=== PATIENT | male | born 1980 | race Caucasian/White ===

== ENCOUNTER 2016-10-23 13:41 | Emergency (ER) | payer OTHER ==
[~2016-10-23] VITALS: Ht 190.5 cm; Wt 116.3 kg
[2016-10-23 13:45] VITALS: TEMP 36.7; Ht 190.5 cm; Wt 116.3 kg
[2016-10-23] MEDS ORDERED: OXYCODONE HCL IR 5 MG TAB (IMMEDIATE RELEASE) PO STA (14:01)
[2016-10-23] MEDS ORDERED: IBUPROFEN 600 MG TAB PO STA (14:01)
[2016-10-23] MEDS ORDERED: NAPR-1169 PO (14:16)
[2016-10-23] MEDS ORDERED: BUPR-79 PO (14:16)
[2016-10-23] MEDS ORDERED: DIVA500T5 PO (14:16)
[2016-10-23] MEDS ORDERED: HYDROCODONE/ACETAMOPHEN 5/325MG TAB PO STA (14:29)
--- NOTE | 2016-10-23 14:50 | DIAGNOSTIC IMAGING REPORT ---
LEFT SHOULDER MIN 2 VIEWS ROUTINE CLINICAL HISTORY: 36 years-old Male presenting with L shoudler pain while weight lifting. TECHNIQUE: Internal rotation, external rotation, and Grashey views of the left shoulder were obtained. COMPARISON: None. FINDINGS: Glenohumeral and acromioclavicular joints congruent. No subluxation. No acute fracture. No significant degenerative change. Visualized portions of the left hemithorax normal. IMPRESSION: No acute osseous injury of the left shoulder. Electronically signed by: Radhames Leyva M.D. 10/23/2016 2:49 PM Dictated Date/Time: 10/23/2016 2:47 PM
[2016-10-23] MEDS ORDERED: HYDR-5688 PO (15:09)
[2016-10-23 15:16] VITALS: BP 143/93; PULSE 70; O2SAT 97
--- NOTE | 2016-10-23 20:06 | EMERGENCY ROOM VISIT NOTE ---
History First contact with patient: 13:50 Chief Complaint: SHOULDER PAIN Stated Complaint: LEFT SHOULDER PAIN History of Present Illness The patient is a 36 year old male who presents to the Emergency Room with complaints of left shoulder pain well performing incline dumbbell presses. The patient reports sudden onset of pain, and had to drop the dumbbell. Now reports significant stiffness and discomfort of the shoulder. He denies any pain extending into the neck, and also denies any paresthesias or numbness of the left upper extremity. The patient does report a prior history of SLAP tear seen on arthrogram, and performed by [facility] earlier last year. The patient is [id number], and rates his discomfort a 6 out of 10. Review of Systems 10 system review was performed and was negative except for pertinent positives and negatives as indicated in history of present illness Past Medical/Surgical History Medical Problems: (1) No significant past medical history Surgical Problems: (1) No history of previous surgery Family History Unremarkable Social History Smoking Status: Current Some Day Smoker Alcohol Use: occasionally Drug Use: none Marital Status: Occupation Status: employed Current/Historical Medications Scheduled Bupropion (Wellbutrin Sr), 150 MG PO BID Divalproex Sodium (Depakote Delay Rel), 500 MG PO BID Naproxen (Naprosyn), 500 MG PO DAILY Scheduled PRN Hydrocodone/Acetaminophen 5MG/325MG ([place] 5MG/325MG), 1-2 TABLET PO Q4H PRN for Pain Allergies Coded Allergies: No Known Allergies (Unverified , 10/23/16) Physical Exam Vital Signs Date Time Temp Pulse Resp B/P (MAP) Pulse Ox O2 Delivery O2 Flow Rate FiO2 10/23/16 15:16 70 16 143/93 97 10/23/16 13:45 36.7 80 16 147/91 99 Room Air Physical Exam CONSTITUTIONAL: Well-developed male, alert and oriented X 3 with positive affect. Patient appears in mild discomfort from pain. HEENT: Normocephalic, atraumatic. Pupils equal, round and reactive. NECK: Full active range of motion without discomfort. No tenderness to palpation through the central cervical spine or paraspinous muscles. RESPIRATORY: Clear to auscultation bilaterally with no wheezing, crackles, rhonchi or stridor. CARDIOVASCULAR: Regular rate and rhythm with no murmurs, rubs or gallops. MUSCULOSKELETAL: Examination shows no obvious soft tissue edema or ecchymosis about the shoulder. He has minimal discomfort to the distal clavicle and acromion clavicular joint. He has tenderness to the bicipital groove and posterior shoulder region. Gentle internal and external rotation does not worsen his discomfort. Any additional range of motion of the shoulder causes discomfort. Distal pulses are intact. INTEGUMENTARY: No rash or other significant dermatologic conditions noted. NEUROLOGIC: Left deltoid sensation is intact. Medical Decision & Procedures ER Provider Diagnostic Interpretation: My interpretation of left shoulder x-rays does not show any obvious fractures, separation or dislocation. Radiologist report is as follows: LEFT SHOULDER MIN 2 VIEWS ROUTINE CLINICAL HISTORY: 36 years-old Male presenting with L shoudler pain while weight lifting. TECHNIQUE: Internal rotation, external rotation, and Grashey views of the left shoulder were obtained. COMPARISON: None. FINDINGS: Glenohumeral and acromioclavicular joints congruent. No subluxation. No acute fracture. No significant degenerative change. Visualized portions of the left hemithorax normal. IMPRESSION: No acute osseous injury of the left shoulder. Medications Administered Medications (Trade) Dose Ordered Sig/Sherice Route Start Time Stop Time Status Last Admin Dose Admin Ibuprofen (Motrin Tab) 600 mg NOW STAT PO 10/23/16 14:01 10/23/16 14:03 DC 10/23/16 14:21 600 MG Acetaminophen/ Hydrocodone Bitart ([place] 5/325 Tab) 1 tab ONE STAT PO 10/23/16 14:29 10/23/16 14:31 DC 10/23/16 14:54 1 TAB ED Course Patient history and physical exam were performed. Nurse's notes were reviewed. The patient was administered ibuprofen 600 mg and [place] 5/325 for pain. X- rays of the left shoulder were normal. The patient was instructed to perform gentle range of motion exercises to prevent stiffness. He was instructed to follow-up with [facility] for further reevaluation and management. Ice for swelling. Ibuprofen and Tylenol as needed for baseline pain relief. The patient was provided a prescription for [place] as needed for worse pain. No drinking alcohol or driving while taking [place]. 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 The patient was happy with plan of care, voiced understanding of all discharge instructions, and rated his pain a 4 out of 10 at the time of discharge. Medical Decision X-rays today are not suggestive of fracture, dislocation or acromioclavicular separation. Acute tendinitis, rotator cuff injury and bursitis were also considered. [facility] Monitoring Program Search Results: patient reviewed within database, no issues identified Impression Primary Impression: Injury of left shoulder Departure Information Prescriptions Hydrocodone/Acetaminophen 5MG/325MG ([place] 5MG/325MG) Tab 1-2 TABLET PO Q4H Y for Pain, #15 TAB For Initial Treatment Prov: Dl Hamm PA 10/23/16 Referrals Andrew Escudero M.D. (PCP) Patient Instructions My [facility] Problem Qualifiers Primary Impression: Injury of left shoulder Encounter type: initial encounter Qualified Codes: S49.92XA - Unspecified injury of left shoulder and upper arm, initial encounter
== END 2016-10-23 15:17 | disposition home or self-care (01) ==
LOC: C.EDB 13:44 → C.EDD 15:17
DX: S49.92XA Unspecified injury of left shoulder and upper arm, initial encounter (principal); X58.XXXA Exposure to other specified factors, initial encounter; Y93.B3 Activity, free weights; Y99.8 Other external cause status; F17.200 Nicotine dependence, unspecified, uncomplicated